=== PATIENT | male | born 1965 | race Caucasian/White ===

== ENCOUNTER 2019-08-11 10:02 | Outpatient (RCR) | payer OTHER, SELFPAY ==
[2019-06-08 10:45] LABS: INR 2.7; Prothrombin Time 27.8 Seconds (11.1-14.7)
[2019-07-09 11:05] LABS: INR 2.5; Prothrombin Time 26.4 Seconds (11.1-14.7)
[2019-08-11 10:38] LABS: INR 2.3
== END 2019-09-06 23:59 | disposition home or self-care (01) ==
LOC: ANHLAB 10:02
DX: Z95.2 Presence of prosthetic heart valve (principal)
CPT/HCPCS: 36415; 85610

== ENCOUNTER 2019-11-17 10:09 | Outpatient (RCR) | payer OTHER, SELFPAY ==
[2019-09-08 11:12] LABS: INR 2.5; Prothrombin Time 26.7 Seconds (11.1-14.7)
[2019-10-09 11:43] LABS: INR 1.6; Prothrombin Time 18.7 Seconds (11.1-14.7)
[2019-10-16 10:39] LABS: INR 2.1; Prothrombin Time 23.3 Seconds (11.1-14.7)
[2019-11-17 10:47] LABS: INR 2.1
== END 2019-12-07 23:59 | disposition home or self-care (01) ==
LOC: ANHLAB 10:09
DX: Z51.81 Encounter for therapeutic drug level monitoring (principal); Z95.2 Presence of prosthetic heart valve; Z79.899 Other long term (current) drug therapy
CPT/HCPCS: 36415; 85610

== ENCOUNTER 2020-01-22 09:58 | Outpatient (CLI) | payer OTHER, SELFPAY ==
[2020-01-22 10:50] LABS: Basophils Absolute Auto 0.1 K/mm3 (0.0-0.1); Basophils Percent Auto 0.9 % (0.2-1.2); Eosinophils Absolute Auto 0.3 K/mm3 (0-0.3); Eosinophils Percent Auto 5.5 % (0-4.4); Hematocrit 44.2 % (42.0-52.0); Hemoglobin 15.4 g/dL (14.0-18.0); Immature Granulocyte Absolute 0.01 K/mm3 (0.00-0.031); Immature Granulocyte Percent A 0.2 % (0-0.5); Lymphocytes Absolute Auto 1.72 K/mm3 (0.9-3.2); Lymphocytes Percent Auto 31.7 % (18.3-44.2); Mean Corpuscular HGB Conc 34.8 g/dl (32-36); Mean Corpuscular Hemoglobin 32.4 pg (26-34); Mean Corpuscular Volume 92.9 fl (80-100); Mean Platelet Volume 11.8 fl (7.4-10.4); Monocytes Absolute Auto 0.5 K/mm3 (0.1-0.6); Monocytes Percent Auto 8.9 % (2.6-8.5); Neutrophils Absolute Auto 2.9 K/mm3 (1.3-6.7); Neutrophils Percent Auto 52.8 % (45.5-73.1); Platelet Count Result 183 k/mm3 (150-375); Red Blood Count 4.76 M/mm3 (4.6-6.20); Red Cell Distribution Width 12.1 % (11.5-14.5); White Blood Count 5.4 K/mm3 (4.5-10.0)
[2020-01-22 11:04] LABS: Alanine Aminotransferase 45 U/L (4-50); Albumin Level 4.5 g/dL (3.5-5.1); Alkaline Phosphatase 64 U/L (38-126); Aspartate Amino Transferase 54 U/L (17-59); Blood Urea Nitrogen 13 mg/dL (9-20); Calcium 9.2 mg/dL (8.4-10.2); Carbon Dioxide 28 mmol/L (22-30); Chloride 101 mmol/L (98-107); Cholesterol 122 mg/dL (0-200); Estimated Glomerular Filt Rate > 60; Glucose 103 mg/dL (75-110); HDL Direct 24 mg/dL; Potassium 4.1 mmol/L (3.4-5.0); Sodium 136 mmol/L (137-145); Triglycerides 362 mg/dL (<150); Uric Acid 8.7 mg/dL (3.5-8.5)
[2020-01-22 11:15] LABS: LDL Cholesterol Direct 44 mg/dL
[2020-01-22 14:18] LABS: Total Triiodothyronine (T3) 1.17 NG/ML (0.97-1.69)
== END 2020-01-22 09:59 | disposition home or self-care (01) ==
LOC: ANHLAB 10:07
PROVIDERS: PCP Family Medicine; Visit Provider Family Medicine
DX: I25.10 Atherosclerotic heart disease of native coronary artery without angina pectoris (principal); I10 Essential (primary) hypertension; E78.5 Hyperlipidemia, unspecified; E03.9 Hypothyroidism, unspecified; Z95.2 Presence of prosthetic heart valve; F32.9 Major depressive disorder, single episode, unspecified
CPT/HCPCS: 36415; 80053; 80061; 84439; 84443; 84480; 84550; 85025

== ENCOUNTER 2020-03-11 09:50 | Outpatient (RCR) | payer OTHER, SELFPAY ==
[2019-12-15 11:01] LABS: Prothrombin Time 30.4 Seconds (11.1-14.7)
[2020-01-14 10:51] LABS: INR 2.8; Prothrombin Time 28.7 Seconds (11.1-14.7)
[2020-02-11 10:48] LABS: INR 2.9; Prothrombin Time 29.5 Seconds (11.1-14.7)
[2020-03-11 10:45] LABS: INR 2.4; Prothrombin Time 25.6 Seconds (11.1-14.7)
== END 2020-03-14 23:59 | disposition home or self-care (01) ==
LOC: ANHLAB 09:50
DX: Z51.81 Encounter for therapeutic drug level monitoring (principal); Z79.899 Other long term (current) drug therapy
CPT/HCPCS: 36415; 85610

== ENCOUNTER 2020-07-05 10:14 | Outpatient (RCR) | payer OTHER, SELFPAY ==
[2020-04-07 11:11] LABS: INR 2.1; Prothrombin Time 22.7 Seconds (11.1-14.7)
[2020-05-05 10:52] LABS: INR 2.2; Prothrombin Time 23.6 Seconds (11.1-14.7)
[2020-06-07 11:36] LABS: INR 1.7; Prothrombin Time 20.4 Seconds (11.1-14.7)
[2020-07-05 11:13] LABS: INR 2.1
== END 2020-07-06 23:59 | disposition home or self-care (01) ==
LOC: ANHLAB 10:14
PROVIDERS: PCP Family Medicine
DX: Z51.81 Encounter for therapeutic drug level monitoring (principal); Z79.01 Long term (current) use of anticoagulants
CPT/HCPCS: 36415; 85610

== ENCOUNTER 2020-07-05 10:18 | Outpatient (CLI) | payer OTHER, SELFPAY ==
[2020-07-05 11:03] LABS: Basophils Absolute Auto 0.1 K/mm3 (0.0-0.1); Basophils Percent Auto 1.3 % (0.2-1.2); Eosinophils Absolute Auto 0.2 K/mm3 (0-0.3); Eosinophils Percent Auto 4.2 % (0-4.4); Hematocrit 45.7 % (42.0-52.0); Hemoglobin 15.8 g/dL (14.0-18.0); Immature Granulocyte Absolute 0.01 K/mm3 (0.00-0.031); Immature Granulocyte Percent A 0.2 % (0-0.5); Lymphocytes Absolute Auto 1.51 K/mm3 (0.9-3.2); Lymphocytes Percent Auto 27.5 % (18.3-44.2); Mean Corpuscular HGB Conc 34.6 g/dl (32-36); Mean Corpuscular Hemoglobin 32.8 pg (26-34); Mean Platelet Volume 11.8 fl (7.4-10.4); Monocytes Absolute Auto 0.4 K/mm3 (0.1-0.6); Neutrophils Absolute Auto 3.2 K/mm3 (1.3-6.7); Neutrophils Percent Auto 58.8 % (45.5-73.1); Platelet Count Result 169 k/mm3 (150-375); Red Blood Count 4.81 M/mm3 (4.6-6.20); Red Cell Distribution Width 12.1 % (11.5-14.5); White Blood Count 5.5 K/mm3 (4.5-10.0)
[2020-07-05 11:35] LABS: Magnesium 2.4 mg/dL (1.6-2.3); Uric Acid 8.6 mg/dL (3.5-8.5)
[2020-07-05 12:06] LABS: Prostate Specific Antigen 0.7 ng/mL (< OR = 4.0)
[2020-07-05 13:22] LABS: Free T4 Free Thyroxine Reflex 0.76 ng/dL (0.78-2.19)
== END 2020-07-05 10:19 | disposition home or self-care (01) ==
PROVIDERS: PCP Family Medicine; Visit Provider Family Medicine
DX: Z12.11 Encounter for screening for malignant neoplasm of colon (principal); Z12.12 Encounter for screening for malignant neoplasm of rectum; E78.5 Hyperlipidemia, unspecified; I25.10 Atherosclerotic heart disease of native coronary artery without angina pectoris; I10 Essential (primary) hypertension; E79.0 Hyperuricemia without signs of inflammatory arthritis and tophaceous disease; Z95.2 Presence of prosthetic heart valve; F32.9 Major depressive disorder, single episode, unspecified
CPT/HCPCS: 36415; 83735; 84153; 84439; 84443; 84550; 85025; 85610

== ENCOUNTER 2020-09-05 09:56 | Outpatient (RCR) | payer OTHER, SELFPAY ==
[2020-08-08 11:37] LABS: INR 2.2; Prothrombin Time 24.8 Seconds (11.1-14.7)
[2020-09-05 10:50] LABS: INR 2.3; Prothrombin Time 26.1 Seconds (11.1-14.7)
== END 2020-11-06 23:59 | disposition home or self-care (01) ==
LOC: ANHLAB 09:56
PROVIDERS: PCP Family Medicine
DX: Z51.81 Encounter for therapeutic drug level monitoring (principal); Z79.899 Other long term (current) drug therapy
CPT/HCPCS: 36415; 85610